=== PATIENT | female | born 1950 | race Hispanic/Latino ===

== ENCOUNTER 2017-04-03 21:11 | Emergency (ER) | payer MEDICARE, BC ==
[2017-04-03 21:12] VITALS: BMI 22.3
[2017-04-03 21:27] VITALS: BP 138/66; PULSE 57; RESP 16; TEMP 98.6; O2SAT 100
[2017-04-03] MEDS ORDERED: Sodium Chloride 0.9% 1,000 ML IV STA (21:34)
--- NOTE | 2017-04-03 22:00 | ED PDOC ---
HPI: Abdomen Time Seen by Provider: 04/03/17 21:29 Chief Complaint (Nursing): Abdominal Pain Chief Complaint (Provider): Lower Abdominal Pain History Per: Patient History/Exam Limitations: no limitations Onset/Duration Of Symptoms: Days (x2 days) Additional Complaint(s): Ashlee Simmons is a 67 year old female with a previous medical history of kidney stones and hypercholesterolemia, who presents to the emergency department with a complaint of lower abdominal pain associated with dysuria, hematuria, nausea, and vomiting ongoing for 2 days. Denies any fever or diarrhea. Reports that she had similar symptoms in the past when she was diagnosed with kidney stones. PMD: Marisel Tran MD Past Medical History Reviewed: Historical Data, Nursing Documentation, Vital Signs Vital Signs: Last Vital Signs Temp 98.6 F 04/03/17 21:24 Pulse 57 L 04/03/17 21:24 Resp 16 04/03/17 21:24 BP 138/66 04/03/17 21:24 Pulse Ox 100 04/03/17 22:10 - Medical History PMH: Hypercholesterolemia, Kidney Stones - Family History Family History: States: Unknown Family Hx - Social History Current smoker - smoking cessation education provided: No Alcohol: Occasional Drugs: Denies - Home Medications Home Medications: Ambulatory Orders Medication Instructions Recorded Alendronate Sodium [Alendronate 35 mg PO SAT 02/01/15 Sodium] Aspirin [Aspirin Chewable] 81 mg PO DAILY 02/01/15 Atorvastatin [Lipitor] 10 mg PO DAILY 02/01/15 Fluticasone Propionate [Flovent 50 mcg PO DAILY 02/01/15 Diskus] Ciprofloxacin HCl [Cipro] 500 mg PO BID #20 tab 04/03/17 Tamsulosin [Flomax] 0.4 mg PO DAILY #6 cap 04/03/17 traMADol [Ultram] 50 mg PO Q8 #10 tab 04/03/17 - Allergies Allergies/Adverse Reactions: Allergies Allergy/AdvReac Type Severity Reaction Status Date / Time No Known Allergies Allergy Verified 04/03/17 21:24 Review of Systems ROS Statement: Except As Marked, All Systems Reviewed And Found Negative Constitutional: Negative for: Fever Gastrointestinal: Positive for: Nausea, Vomiting, Abdominal Pain (lower). Negative for: Diarrhea Genitourinary Female: Positive for: Dysuria, Hematuria Physical Exam - Reviewed Nursing Documentation Reviewed: Yes Vital Signs Reviewed: Yes - Physical Exam Appears: Positive for: Well, Non-toxic, No Acute Distress Skin: Positive for: Normal Color, Warm, Dry Cardiovascular/Chest: Positive for: Regular Rate, Rhythm Respiratory: Positive for: Normal Breath Sounds. Negative for: Crackles, Rales , Rhonchi, Stridor Gastrointestinal/Abdominal: Positive for: Bowel Sounds, Soft, Tenderness (mild bilaterally to lower abdomen and suprapubic area) Back: Positive for: Normal Inspection. Negative for: L CVA Tenderness, R CVA Tenderness Neurologic/Psych: Positive for: Alert, Oriented - Laboratory Results Result Diagrams: 04/03/17 21:55 04/03/17 21:55 - ECG O2 Sat by Pulse Oximetry: 100 (RA) Pulse Ox Interpretation: Normal Medical Decision Making Medical Decision Making: Initial Impression: Lower abdomen pain; Dysuria; Hematuria Initial Plan: * CXR * CT ABD/Pelvis without PO or IV contrast * Labs * Urine dipstick * Toradol 30mg IVP * NS 1,000ml IV per 100 mls/hr * Zofran 4mg IVP * Urine culture * reevaluate Scribe Attestation: Documented by Renee Choudhury, acting as a scribe for Jay Mireles MD. Provider Scribe Attestation: All medical record entries made by the Scribe were at my direction and personally dictated by me. I have reviewed the chart and agree that the record accurately reflects my personal performance of the history, physical exam, medical decision making, and the department course for this patient. I have also personally directed, reviewed, and agree with the discharge instructions and disposition. Disposition - Clinical Impression Clinical Impression: Kidney stones - Patient ED Disposition Is Patient to be Admitted: No - Disposition Referrals: Skyler Ghosh Jr., MD [Staff Provider] - Disposition: Routine/Home Disposition Time: 23:47 Condition: FAIR Prescriptions: Ciprofloxacin HCl [Cipro] 500 mg PO BID #20 tab Tamsulosin [Flomax] 0.4 mg PO DAILY #6 cap traMADol [Ultram] 50 mg PO Q8 #10 tab Instructions: Kidney Stones (ED)
[2017-04-03 22:18] LABS: BASO % 0.6 % (0.0-2.0); EOS # 0.1 K/uL (0.0-0.7); EOS % 1.6 % (0.0-4.0); HEMATOCRIT 41.2 % (34.0-47.0); LYMPH # 2.2 K/uL (1.0-4.3); MEAN CELL VOLUME 89.9 fl (81.0-99.0); MEAN CORPUSCULAR HEMOGLOBIN 30.3 pg (27.0-31.0); MEAN CORPUSCULAR HGB CONC 33.7 g/dL (33.0-37.0); MEAN PLATELET VOLUME 7.7 fl (7.2-11.7); MONO # 0.6 K/uL (0.0-0.8); MONO % 8.9 % (0.0-10.0); NEUT # 4.1 K/uL (1.8-7.0); NEUT % 57.9 % (50.0-75.0); RED CELL DISTRIBUTION WIDTH 13.8 % (11.5-14.5); WHITE BLOOD COUNT 7.1 K/uL (4.8-10.8)
[2017-04-03 22:33] LABS: ALB/GLOB RATIO 1.4 (1.0-2.1); ALKALINE PHOSPHATASE 45 U/L (38-126); ALT/SGPT 31 U/L (9-52); AST/SGOT 34 U/L (14-36); BILIRUBIN,TOTAL 0.6 mg/dl (0.2-1.3); BLOOD UREA NITROGEN 17 mg/dl (7-17); CALCIUM 8.9 mg/dL (8.4-10.2); CARBON DIOXIDE 22 mmol/L (22-30); CHLORIDE 105 mmol/L (98-107); GFR AFRICAN-AMERICAN > 60; GLUCOSE,RANDOM 132 mg/dL (65-105); POTASSIUM 4.4 MMOL/L (3.6-5.0); SODIUM 138 mmol/l (132-148); TOTAL PROTEIN 7.8 G/DL (6.3-8.2)
--- NOTE | 2017-04-03 23:03 | CT ---
EXAM: CT Abdomen and Pelvis Without Intravenous Contrast CLINICAL HISTORY: 67 years old, female; Pain; Abdominal pain; Flank; Other: B/l flank pain; Patient HX: B/l flank pain radiating to pelvis. Hematuria. Dysuria. HX of kidney stone. High cholesterol; Additional info: R/O kidney stone TECHNIQUE: Axial computed tomography images of the abdomen and pelvis without intravenous contrast. This CT exam was performed using one or more of the following dose reduction techniques: automated exposure control, adjustment of the mA and/or kV according to patient size, and/or use of iterative reconstruction technique. Coronal and sagittal reformatted images were created and reviewed. COMPARISON: CT - ABDOMEN^RENAL STONE (ADULT) 03/29/2011 8:56:37 AM FINDINGS: Limitations: Motion artifact - mild. Lower thorax: Minimal atelectasis/scarring. Lungs: Few calcified granulomas. ABDOMEN: Liver: Few too small to characterize lesions. Gallbladder and bile ducts: No calcified stones. No ductal dilation. Pancreas: Unremarkable. No ductal dilation. Spleen: Multiple splenic calcifications. Adrenals: No mass. Kidneys and ureters: LEFT peripelvic cysts. Too small to characterize lesion within LEFT kidney. [id number] pelvocaliectasis of LEFT kidney. 0.3 x 0.2 x 0.3 cm calculus within LEFT distal ureter. Findings similar to previous examination. Stomach and bowel: Few scattered diverticula within colon. No associated inflammatory stranding. Segmental areas of underdistention of colon. No definite mural thickening. No obstruction. Appendix: No findings to suggest acute appendicitis. PELVIS: Bladder: Unremarkable. No stones. Reproductive: Lobulated uterus with multiple coarse calcifications. 1.8 x 1.7 x 1.7 cm hypodense lesion within RIGHT ovary. ABDOMEN and PELVIS: Intraperitoneal space: No significant fluid collection. No free air. Bones/joints: Degenerative changes of spine. Degenerative changes and mild scoliosis of spine. No acute fracture. Soft tissues: Tiny umbilical hernia containing fat. Vasculature: Mild atherosclerotic disease. Lymph nodes: No pathologically enlarged lymph nodes. IMPRESSION: 1. RIGHT distal ureteral calculus with [id number] hydroureteronephrosis, similar in appearance to previous examination. 2. Possible RIGHT adnexal cyst. Recommend nonemergent ultrasound. 3. Probable fibroid uterus. 4. Incidental/non-acute findings are described above.
== END 2017-04-04 00:07 | disposition home or self-care (01) ==
LOC: H.ER 21:11
DX: N20.0 Calculus of kidney (principal); R31.9 Hematuria, unspecified; E78.00 Pure hypercholesterolemia, unspecified; Z79.82 Long term (current) use of aspirin
CPT/HCPCS: 74176; 80053; 85025; 87086; 96374; 96375; 99283; J1885; J2405; J7040